=== PATIENT | female | born 1940 | race Caucasian/White ===

== ENCOUNTER 2016-08-10 08:32 | Inpatient (IN) | payer MEDICARE, BC ==
[2016-08-03 13:11] VITALS: BMI 32.2
[~2016-08-10 08:32] MED LIST: DEXAMETHASONE SOD PHOSPHATE 10 MG/ML 1 ML VIAL IV ONE; HYDROmorphone 1 MG/ML 1 ML SYRINGE IVP PRN; LACTATED RINGERS 1,000 ML IV SCH; LIDOCAINE 1% 20 ML VIAL (10MG/ML) FOR IV START INTRADERMA PRN; ONDANSETRON 4 MG/2 ML VIAL IVP ONE
[2016-08-10] MEDS ORDERED: MIDAZOLAM 2 MG/2 ML VIAL IV ONE (11:40)
[2016-08-10] MEDS ORDERED: LIDOCAINE 1% 20 ML VIAL (10MG/ML) FOR IV START INTRADERMA ONE (11:53)
[2016-08-10] MEDS ORDERED: VECURONIUM 10 MG VIAL IV ONE (12:05)
[2016-08-10] MEDS ORDERED: PROPOFOL 10 MG/ML 20 ML VIAL IV ONE (12:05)
[2016-08-10] MEDS ORDERED: PHENYLEPHRINE-0.9% NACL SYG 1 MG/10 ML SYRINGE ONE (12:05)
[2016-08-10] MEDS ORDERED: MIDAZOLAM 2 MG/2 ML VIAL ONE (12:05)
[2016-08-10] MEDS ORDERED: HYDROmorphone (PF) 1 MG/ML ONE (12:05)
[2016-08-10] MEDS ORDERED: GLYCOPYRROLATE 0.2 MG/ML 2 ML VIAL ONE (12:05)
[2016-08-10] MEDS ORDERED: ePHEDrine 50 MG/ML 1 ML AMP ONE (12:05)
[2016-08-10] MEDS ORDERED: ceFAZolin 1,000 MG in SODIUM CHLORIDE 0.9% 1,000 ML IRRIGATION ONE (12:05)
[2016-08-10] MEDS ORDERED: LIDOCAINE 1% INJ 10MG/ML (20 ML MDV) ONE (12:05)
[2016-08-10] MEDS ORDERED: SODIUM CHLORIDE 0.9% 100 ML with ceFAZolin 2,000 MG IV ONE ×2 (12:05)
[2016-08-10] MEDS ORDERED: SUCCINYLCHOLINE CHLORIDE 100 MG/5 ML SYR IV ONE (12:05)
[2016-08-10] MEDS ORDERED: NEOSTIGMINE 1 MG/ML 10 ML VIAL ONE (12:05)
[2016-08-10] MEDS ORDERED: fentaNYL (PF) 50 MCG/ML 2 ML AMP ONE (12:05)
[2016-08-10] MEDS ORDERED: LACTATED RINGERS 1,000 ML IV ONE ×3 (13:15→16:51)
--- NOTE | 2016-08-10 15:16 | FL ---
EXAMINATION TYPE: FL guidance operating room, XR foot complete LT DATE OF EXAM: 08/10/2016 CLINICAL HISTORY: Left foot fracture. TECHNIQUE: Fluoroscopy. Complete left foot x-ray. COMPARISON: None. FINDINGS: Fluoroscopic guidance was provided during open reduction internal fixation procedure perfo rmed by Dr. Carlos. A total of 112 seconds of fluoroscopic time was utilized during the procedure and four spot intraoperative images are acquired. Images acquired show extensive arthrodesis of midfoot and hindfoot structures including involvement a nd Lisfranc joints and hindfoot aspect. IMPRESSION: As Above.
[2016-08-10] MEDS ORDERED: HYDROmorphone 1 MG/ML 1 ML SYRINGE IVP PRN ×3 (15:45)
[2016-08-10] MEDS ORDERED: hydrOXYzine PAMOATE 25 MG CAP PO PRN (15:45)
[2016-08-10] MEDS ORDERED: PROCHLORPERAZINE SUPPOSITORY 25 MG SUPP RECTAL PRN (15:45)
[2016-08-10] MEDS ORDERED: diphenhydrAMINE 25 MG CAP PO PRN (15:45)
[2016-08-10] MEDS ORDERED: METOCLOPRAMIDE 5 MG/ML 2 ML VIAL IVP PRN (15:45)
[2016-08-10] MEDS ORDERED: ONDANSETRON 4 MG/2 ML VIAL IVP PRN (15:45)
[2016-08-10] MEDS ORDERED: TEMAZEPAM 15 MG CAP PO PRN (15:45)
[2016-08-10] MEDS ORDERED: SENNOSIDES-DOCUSATE SODIUM 1 EACH TAB PO PRN (15:45)
[2016-08-10] MEDS ORDERED: HYDROcodone/APAP 7.5-325MG 1 EACH TAB PO PRN (15:52)
--- NOTE | 2016-08-10 16:12 | P.OP ---
Date of Procedure: 08/10/16 Preoperative Diagnosis: 1. Left stage IIB adult acquired flatfoot deformity 2. Left posterior tibial tendon dysfunction 3. Left first tarsometatarsal joint arthritis 4. Left Achilles tendon contracture Postoperative Diagnosis: Same Procedure(s) Performed: 1. Left double arthrodesis (subtalar and talonavicular joints) 2. Left first tarsometatarsal joint fusion obtained through a separate incision 3. Left percutaneous tendo Achilles lengthening (triple hemisection) Implants: Anesthesia: GETA, regional Surgeon: Ang Carlos Ramp Lead #1: Anil Winn Estimated Blood Loss (ml): 200 IV fluids (ml): 1,700 Urine output (ml): 740 Pathology: none sent Condition: stable Disposition: PACU Indications for Procedure: The patient is a previously healthy 75 rolled female who has had a long- standing history of problems with her left foot. She's been managed by other providers. She has tried orthotics, bracing, shoe modification, activity modification, anti-inflammatories, and therapy all with diminishing relief. She was referred to my office for management. I discussed continued nonsurgical treatment versus surgery. The patient requested surgery due to the ongoing pain and deformity. Due to the patient's age, degree of deformity, and arthritic changes I recommended a double arthrodesis of the subtalar and talonavicular joints and a first tarsometatarsal joint fusion as well as lengthening of the Achilles tendon. The patient and her daughter agreed to go forward with surgery. We discussed potential risks and complication of surgery including but not limited to risks of anesthesia, risk of superficial infection , risk of deep infection, risk of delayed wound healing, risk of wound necrosis , risk of damage to local nerves resulting in temporary or permanent numbness, risk of damage to blood vessels resulting in lack of blood flow to the foot, risk of nonunion, risk of malunion, risk of delayed union, risk of intraoperative fracture, risk of postoperative fracture, risk of recurrent deformity, risk of continued pain, risk of continued swelling, risk of generalized to satisfaction with surgery, risk of need for further surgery, risk of postoperative medical problems, risk of weakness, risk of difficulty ambulating, risk of inability to regain preinjury level of function and possibly loss of life or limb. The patient and her family understand these risks and provided their verbal consent to go forward with surgery. Operative Findings: Description of Procedure: The patient was identified in preoperative holding and the correct left leg was marked with my initials. The patient had all of her questions answered before being brought back to the operating room. I verified that the consent form matched our discussed procedure in the office. Prior to going to the operating room anesthesia placed a popliteal nerve block. The patient was then brought back to operating room and a general anesthetic was administered. She was then positioned on the operating room table and all bony prominences were padded. A tourniquet was applied to the proximal aspect of her left thigh. All bony prominences were well-padded. While she was under anesthesia I performed a Silfverskiold test. With the knee extended and bent I was unable to passively dorsiflex past neutral. A bone foam bump was then placed under her left buttock. A ramp was placed under her left leg. The left leg was then prepped and draped in the standard sterile fashion. Prior to starting surgery timeout was performed identifying the correct patient, operative extremity, and procedure. The patient's leg was then elevated, exsanguinated with an Esmarch bandage, and the tourniquet was inflated to 250 mmHg. I began by performing a triple hemisection of the Achilles tendon. A 15 blade scalpel was inserted into the distal aspect of the Achilles tendon in the midline and the knife was turned medially releasing the medial half of the tendon. The knife was carefully withdrawn and advanced 2 cm and the lateral half of the Achilles was released. The knife was carefully withdrawn and advanced 2 cm and the medial half of the tendon was released. Gentle dorsiflexion force to the ankle was applied and there was a significant increase in the length of the Achilles tendon and dorsiflexion of the ankle. Attention was then turned to exposing the subtalar joint. A skin incision was marked out with a marker from the tip of the fibula extending obliquely towards the base of the fourth metatarsal. An incision was made with 15 blade scalpel and dissection was carried down carefully through subcutaneous tissue with tenotomy scissors. The fascia over the EDB muscle was incised longitudinally in line with the skin incision. I developed the interval between the peroneal tendons and the EDB. The subtalar joint was then exposed. The ligaments were released to allow adequate exposure of the middle and posterior facets. K wires were then placed into the talar body and calcaneus. A distractor was applied. The articular cartilage was removed from the posterior and middle facets of the calcaneus using a combination of osteotomes and curettes. All of the cartilage was removed. The joint was then irrigated. A 2.0 mm drill bit was used to freight the subchondral bone to facilitate fusion. Attention was then turned to exposing the talonavicular joint. A skin incision was marked out with a marker from the tip of the fibula along the medial column of the foot centered over the talonavicular joint. Skin incision was made a 15 blade scalpel and dissection was carried down carefully through subcutaneous tissue. The interval between the tibialis anterior and posterior tibial tendon was developed. The posterior tibial tendon appeared to be thickened and necrotic. A large portion of the posterior tibial tendon was sharply excised. The capsule of the talonavicular joint was then opened. K wires for distractor were placed in the talar neck and navicular. A distractor was then placed opening the talonavicular joint. The articular cartilage from the talar head and navicular removed with a series of osteotomes and curettes. The joint was then copiously irrigated. A 2.0 mm drill bit was used to perforate the talar head and navicular. At this point both of the joints were prepared for fusion. Augment was then dispensed and mixed on the back table. The augment mixture was then packed into the drill holes of the subtalar and talonavicular joint. I then carefully reduced the subtalar joint, placing the subtalar joint in slight valgus making sure the heel lined up with the tibia. A 0.0625 K wire was placed up through the anterior process of the calcaneus into the talus holding the reduction. C- arm was then brought in and 2 K wires for a cannulated 7.0 screws were placed from the base of the heel up into the talar body. I verified position of the wires with fluoroscopy in the lateral, axial, and AP ankle views. Once I was happy with position of the wires they were overdrilled, countersunk was used and partially threaded 7.0 mm cannulated screws were applied. Attention was then turned to the talonavicular joint. The talonavicular joint was reduced. The forefoot was brought around the talar head. Once the talar joint was reduced K wires were placed in the navicular tuberosity and over the dorsomedial aspect of the talus. A drill bit was used to overdrill the wires and partially threaded 4.0 mm screws were placed generating excellent compression across the talonavicular joint. Attention was then turned to the first tarsometatarsal joint. A longitudinal incision in the 1-2 intermetatarsal space was marked out. An incision was made a 15 blade scalpel and dissection was carried down carefully through subcutaneous tissue. The interval between the EHL and EHB was exploited. The first tarsometatarsal joint was then exposed. Dorsal osteophytes were removed with a Tony. The joint appeared markedly arthritic and deformed. Osteotomes were used to remove the remaining cartilage all the way down to the plantar aspect of the joint to prevent dorsiflexion of the fusion. Once all of the articular cartilage was removed the joint surface was perforated with a 20 drill bit. The remaining augment mixture was packed into the fusion site. The joint was then held reduced taking care to plantarflex the first ray. A 0.0625 K wire was placed obliquely across the joint. A 5 mm bur was used to create a pocket hole over the dorsal aspect of the first metatarsal 1.5 cm distal to the joint. A 3.5 mm drill bit was used to create a gliding hole in the base of the first metatarsal and a 2.5 mm drill bit was used to create a threaded hole in the medial cuneiform. A fully threaded 3.5 mm screw was placed across the joint generating excellent compression. A 2.5 mm drill bit was then used to place a screw in the dorsal aspect of the medial cuneiform into the first metatarsal base. A fully threaded 3.5 mm screw was placed across the joint. I then made a stab incision over the medial aspect of the first metatarsal underneath the screw head of the retrograde screw across the first tarsometatarsal joint. A 2.5 mm drill bit was used to create a track from the first metatarsal base across the second metatarsal base. A fully threaded 3.5 mm screw was placed across the first and second metatarsal. I then placed a K wire through the proximal aspect of the incision over the first tarsometatarsal joint through the lateral aspect of the navicular across the talonavicular joint. A drill was used to create a track and a partially-threaded 4.0 mm screw was placed across the joint. Final fluoroscopy shots were taken showing reconstruction of the arch on the lateral view. The talonavicular and subtalar joints appeared compressed. Hardware appeared to be in acceptable position. There were no screws within the ankle joint. Clinically the patient had a reconstructed arch. At this point all wounds were irrigated taking care not to wash away any augment. The joint capsule was closed with running 0 Vicryl over the medial talonavicular and lateral subtalar joint respectively. The deep subcu of all incisions were closed with 2-0 Vicryl. The capsule over the first tarsometatarsal joint was closed with interrupted 2-0 Vicryl. The deep subcu layers of all incisions were closed with 2-0 Vicryl. Skin was closed with 3-0 nylon horizontal mattress stitches. The stab incision over the heel was closed with 3-0 nylon. The stab incisions from the Achilles tendon lengthening were closed with Steri-Strips. I verified that all instrument sponge and sharp counts were correct. The tourniquet had been let down earlier in the procedure with a total tourniquet time of 116 minutes. At the end of the case the toes appeared to be warm and well-perfused brisk capillary refill. A sterile dressing consisting of Betadine soaked Adaptic, 4 x 4, and web roll was applied. The drapes were taken down and a well-padded bulky Anderson splint was applied. The patient was then awoken from her anesthetic transferred to the [facility] and brought back up out of the procedure well. And often was required as a skilled nursing home assistant for patient positioning, surgical exposure, preparation of the joint surfaces, placement of the hardware, closure , application of splint. Plan: The patient is going to be admitted to the hospital under my care. She is to remain strictly nonweightbearing on her left lower extremity. 2 doses of postoperative antibiotics. DVT prophylaxis with Lovenox while in-house and will discharge home on aspirin 325 mg twice a day. Physical therapy for mobilization. Transition from IV to oral pain medications. The patient can discharge home when her pain is controlled on oral pain medications, she passes physical therapy and discharge plans are made.
[2016-08-10 18:25] LABS: Basophils % (A) 0 %; CH 30.1; Eosinophils % (A) 0 %; HCT 39.9 % (34.0-46.0); HDW 2.75; HGB 13.2 gm/dL (11.4-16.0); Luc # (Auto) 0.02; Luc % (Auto) 0; Lymphocytes # (A) 0.6 k/uL (1.0-4.8); Lymphocytes % (A) 7 %; MCH 29.4 pg (25.0-35.0); MCHC 33.1 g/dL (31.0-37.0); Mean Platelet Volume 6.4; Monocytes # (A) 0.1 k/uL (0-1.0); Monocytes % (A) 1 %; Neutrophils # (A) 8.4 k/uL (1.3-7.7); Neutrophils % (A) 92 %; RBC 4.49 m/uL (3.80-5.40); RDW 13.4 % (11.5-15.5); WBC 9.2 k/uL (3.8-10.6); WBC (Perox) 10.29
[2016-08-10] MEDS: ceFAZolin 2 GM in SODIUM CHLORIDE 0.9% 100 ML IVPB SCH ×2 (18:30→23:08)
[2016-08-10] MEDS: CALCIUM CARBONATE 500 MG CHEWABLE PO SCH (21:23)
[2016-08-10] MEDS: LACTATED RINGERS 1,000 ML IV SCH (21:23)
[2016-08-10] MEDS: HYDROcodone/APAP 7.5-325MG 1 EACH TAB PO PRN (21:27)
[2016-08-11] MEDS: LACTATED RINGERS 1,000 ML IV SCH ×3 (04:18→22:04)
[2016-08-11] MEDS: HYDROcodone/APAP 7.5-325MG 1 EACH TAB PO PRN ×3 (04:20→17:22)
--- NOTE | 2016-08-11 08:50 | CONS ---
DATE OF CONSULTATION: REASON FOR CONSULTATION: Advice regarding hypertension requested by Dr. Carlos. HISTORY OF PRESENT ILLNESS: This 75-year-old woman with a past medical history of hypertension, hard of hearing, history of pneumonia, heart murmur, history of hysterectomy, history of nicotine dependence being followed by [facility] Dotson in the outpatient setting underwent left double arthrodesis of joints as well as left first tarsometatarsal joint effusion. Obtained three separate incisions and left percutaneous Achillis lengthening for adult flat foot deformity. There is no history of fever, rigors. No history of headache, loss of consciousness, seizures. No history of hematochezia, melena at this time. PAST MEDICAL HISTORY: Hearing defects, uses hearing aid, hypertension, history of pneumonia, heart murmur, hysterectomy, total right and left knee, left wrist. Medications prior to admission include home medications are: 1. Norvasc 5 mg p.o. daily. 2. Metoprolol 25 mg daily. 3. Lisinopril 40 mg daily. 4. Hydrochlorothiazide 12.5 mg daily. 5. Glucosamine 1 capsule p.o. at bedtime. 6. Fish oil 1 capsule daily. 7. Zyloprim 100 mg p.o. daily. ALLERGIES: None. FAMILY HISTORY: No history of heart disease or strokes in the family. SOCIAL HISTORY: Previous history of smoking, no history of alcohol intake. REVIEW OF SYSTEMS: ENT: No diminished hearing. No diminished vision. CARDIOVASCULAR: No angina. RESPIRATORY: No cough or hemoptysis. GI: No nausea. : No dysuria. NERVOUS SYSTEM: No numbness or weakness. ALLERGY/IMMUNOLOGY: No asthma or hayfever. MUSCULOSKELETAL: As mentioned earlier. HEMATOLOGY: No history of anemia. ENDOCRINE: No history of diabetes or hypothyroidism. CONSTITUTIONAL: As mentioned earlier. DERMATOLOGY: Negative. RHEUMATOLOGY: As mentioned earlier. PSYCHIATRY: As mentioned earlier. PHYSICAL EXAMINATION: Patient is alert and oriented x3. Pulse is 82, blood pressure 113/56, respirations 16, temperature normal, pulse ox 93% on room air. HEENT: Conjunctivae normal. NECK: No jugular venous distention. CARDIOVASCULAR: S1 and S2, muffled. Ejection systolic murmur. RESPIRATORY: Breath sounds diminished at the bases. No rhonchi, no crackles. ABDOMEN: Soft, nontender. No mass palpable. LEGS: Status post surgery. NERVOUS SYSTEM: Higher function as mentioned. Moves all four limbs. No focal motor deficits. LYMPHATIC: No lymphadenopathy in the neck, axillae or groin. SKIN: No ulcer, rash or bleeding. LABS: CBC within normal limits. ASSESSMENT: 1. Status post left double arthrodesis subtalar and talonavicular joints as well as first tarsometatarsal fusion and percutaneous Achilles lengthening for left stage B adult acquired flat foot and Achilles tendon contractures. 2. Hypertension. 3. History pneumonia. 4. History of hard of hearing. 5. History heart murmur. 6. History of nicotine dependence. 7. FULL CODE. RECOMMENDATIONS AND DISCUSSION: This 75-year-old woman who presented after surgery, at this time I recommend to continue current medications, continue with symptomatic treatment, resume the home medications. Monitor blood pressure. DVT prophylaxis. Incentive spirometry. Follow the patient closely with you. Thank you Dr. Carlos for letting us participate in the care of this patient. See orders for details. BRIDGETD
[2016-08-11] MEDS: METOPROLOL TARTRATE 25 MG TAB PO SCH (08:56)
[2016-08-11] MEDS: CALCIUM CARBONATE 500 MG CHEWABLE PO SCH ×3 (08:56→17:23)
[2016-08-11] MEDS: ENOXAPARIN 40 MG/0.4 ML SYRINGE SQ SCH (08:56)
[2016-08-11] MEDS: amLODIPine 5 MG TAB PO SCH (08:56)
[2016-08-11] MEDS: HYDROCHLOROTHIAZIDE 12.5 MG CAP PO SCH (08:56)
[2016-08-11] MEDS: ALLOPURINOL 100 MG TAB PO SCH (08:56)
[2016-08-11] MEDS: LISINOPRIL 20 MG TAB PO SCH (08:56)
--- NOTE | 2016-08-11 10:14 | P.PN ---
Subjective The patient is doing well this morning and has minimal discomfort in her left ankle or foot. She denies chest pain or shortness of breath. She is up in a chair at the time of my evaluation. Objective - Vital Signs Vital signs: Vital Signs Temp 98.0 F 08/11/16 07:00 Pulse 80 08/11/16 07:00 Resp 16 08/11/16 07:00 BP 154/65 08/11/16 07:00 Pulse Ox 92 L 08/11/16 07:00 Intake & Output 08/10/16 08/11/16 08/11/16 18:59 06:59 18:59 Intake Total 2301 1200 480 Output Total 990 Balance 1311 1200 480 Weight 96.162 kg Intake: IV 2301 1200 Lactated Ringers 1,000 ml 1200 @ 100 mls/hr IV .Q10H CASI Rx#:[id number] Oral 480 Output: Urine 790 Estimated Blood Loss 200 Other: Voiding Method Bedpan Bedside Commode # Voids 1 - Exam On exam the patient is in no apparent distress and is sitting comfortably at the bedside in a chair. On examination of the left leg there is a clean- appearing bulky Anderson splint. The tips of the toes are visible and are warm and well perfused with brisk capillary refill. She has no pain with passive range of motion of her toes. - Labs CBC & Chem 7: 08/10/16 17:43 Labs: Abnormal Lab Results - Last 24 Hours (Table) 08/10/16 Range/Units 17:43 Neutrophils # 8.4 H (1.3-7.7) k/uL Lymphocytes # 0.6 L (1.0-4.8) k/uL Assessment and Plan Plan: Postop day #1 status post double arthrodesis for correction of adult acquired flat foot deformity, first tarsometatarsal fusion, and percutaneous tendo Achilles lengthening. Doing well 1. Strict nonweightbearing left lower extremity. Ice and elevate the limb. 2. 2 doses postoperative antibiotics. 3. DVT prophylaxis with Lovenox while in home and aspirin 325 mg twice daily after discharge 4. Internal medicine consult for assistance with perioperative medical management 5. Physical therapy for gait training 6. Bone health with calcium carbonate 500 mg 3 times a day, vitamin D3 2000 units daily and 25-hydroxy vitamin D level pending. 7. Discharge planning - we'll await assessment by physical therapy and social work regarding discharge plans. The patient may need a short stay in a rehab facility. When she clears physical therapy and her pain is controlled with oral pain medications she is okay to discharge.
[2016-08-11] MEDS: CHOLECALCIFEROL 1,000 UNIT TAB PO SCH (11:17)
--- NOTE | 2016-08-11 21:40 | PN ---
DATE OF SERVICE: 08/11/2016 This 75 -year-old woman was admitted after left foot surgery is improving significantly. No chest pain. No palpitations. No fever. No chills. No shortness of breath. On exam, alert and oriented times three. Pulse 69, blood pressure 133/74. Respiratory rate 18. Temperature 97.9. Pulse ox 92% on room air. HEENT: Conjunctivae normal. NECK: No jugular venous distention. CARDIOVASCULAR: S1, S2 muffled. RESPIRATORY: Breath sounds diminished at the bases. No rhonchi. No crackles. ABDOMEN: Soft. Nontender. CENTRAL NERVOUS SYSTEM: No focal deficits. Examination of the left leg status post surgery. LABS: WBC CBC within normal limits. ASSESSMENT: 1. Status post left double arthrodesis of subtalar and navicular joints as well as on the left as well as first tarsal metatarsal fusion and percutaneous lengthening for left stage III adult acquired flatfoot as well as Achilles tendon contractures. 2. Hypertension, essential history. 3. History of pneumonia. 4. History of hard of hearing. 5. History of heart murmur. 6. History of nicotine dependence. 7. FULL CODE. RECOMMENDATIONS AND DISCUSSION: I recommend to continue current medications. Continue to monitor. Symptomatic treatment. Otherwise, at this time, I recommend current medications, continue DVT prophylaxis. Incentive spirometry. Closely follow with orthopedic surgery. Further recommendations to follow. MTDD
[2016-08-12] MEDS: HYDROcodone/APAP 7.5-325MG 1 EACH TAB PO PRN ×4 (00:43→20:18)
[2016-08-12] MEDS: CALCIUM CARBONATE 500 MG CHEWABLE PO SCH ×3 (08:30→17:36)
[2016-08-12] MEDS: LACTATED RINGERS 1,000 ML IV SCH ×2 (08:31→22:07)
[2016-08-12] MEDS: METOPROLOL TARTRATE 25 MG TAB PO SCH (08:38)
[2016-08-12] MEDS: HYDROCHLOROTHIAZIDE 12.5 MG CAP PO SCH (08:38)
[2016-08-12] MEDS: ALLOPURINOL 100 MG TAB PO SCH (08:38)
[2016-08-12] MEDS: amLODIPine 5 MG TAB PO SCH (08:38)
[2016-08-12] MEDS: LISINOPRIL 20 MG TAB PO SCH (08:38)
[2016-08-12] MEDS: ENOXAPARIN 40 MG/0.4 ML SYRINGE SQ SCH (08:39)
[2016-08-12] MEDS: CHOLECALCIFEROL 1,000 UNIT TAB PO SCH (12:05)
--- NOTE | 2016-08-12 13:10 | P.PN ---
Subjective Principal diagnosis: Left adult acquired flat foot deformity This is a well-appearing 75-year-old female who is postoperative day #2 from surgery to the left foot. Patient states she is doing very well. Patient states her pain is under control. Patient states she has been up and working with physical therapy. Patient states she has remained nonweightbearing to the left lower extremity as recommended. Patient has no new complaints today. Objective - Vital Signs Vital signs: Vital Signs Temp 97.7 F 08/12/16 07:00 Pulse 72 08/12/16 07:00 Resp 16 08/12/16 07:00 BP 150/74 08/12/16 07:00 Pulse Ox 91 L 08/12/16 07:00 Intake & Output 08/11/16 08/12/16 08/12/16 18:59 06:59 18:59 Intake Total 1320 300 180 Output Total 100 Balance 1320 300 80 Intake: Oral 1320 300 180 Output: Urine 100 Other: Voiding Method Bedside Commode Bedside Commode Bedside Commode # Voids 1 1 - Exam Patient is in no acute distress and patient is alert and oriented 3. On exam of the left lower extremity patient's splint is clean, dry and intact. Sensation is intact with light touch to the left toes. Neurovascular status is intact. - Labs CBC & Chem 7: 08/10/16 17:43 Assessment and Plan Plan: #1. Continue routine postoperative care. #2. Continue nonweightbearing to the left lower extremity. #3. Continue anticoagulation and pain control #3. Patient will most likely discharge to rehab tomorrow.
[2016-08-13] MEDS: HYDROcodone/APAP 7.5-325MG 1 EACH TAB PO PRN ×3 (02:43→14:44)
[2016-08-13 04:40] VITALS: RESP 16
[2016-08-13] MEDS: LACTATED RINGERS 1,000 ML IV SCH (04:47)
--- NOTE | 2016-08-13 07:24 | PN ---
DATE OF SERVICE: 08/12/2016 This 75-year-old woman who was admitted with left foot surgery is being closely monitoring. The patient is improving significantly. No chest pain or palpitation. No fever. On examination, the patient is alert and oriented x3. Pulse is 71, blood pressure 114/66, respirations 16, temperature 97.7, pulse ox is 92% on room air. HEENT: Conjunctivae normal. NECK: No jugular venous distention. CARDIOVASCULAR: S1 and S2, muffled. RESPIRATORY: Breath sounds diminished at the bases. No rhonchi, no crackles. ABDOMEN: Soft, nontender. LEGS: Status post left foot surgery. NERVOUS SYSTEM: No focal deficit. Labs are noted. ASSESSMENT: 1. Status post left double arthrodesis subtalar and navicular joints as well as left tarsometatarsal fusion with percutaneous lengthening of Achilles tendon for stage III adult acquire flatfoot as well as Achilles tendon contractures. 2. Hypertension, essential, history. 3. History of pneumonia. 4. Hard of hearing. 5. History of cardiac murmurs. 6. History of nicotine dependence. 7. FULL CODE. RECOMMENDATIONS AND DISCUSSION: Recommend to continue current medications. Continue symptomatic treatment. DVT prophylaxis. Recommend close outpatient followup. Further recommendations to follow. MTDD
[2016-08-13 08:37] VITALS: BP 153/77; PULSE 71; TEMP 98.2
[2016-08-13] MEDS: ALLOPURINOL 100 MG TAB PO SCH (09:16)
[2016-08-13] MEDS: METOPROLOL TARTRATE 25 MG TAB PO SCH (09:16)
[2016-08-13] MEDS: LISINOPRIL 20 MG TAB PO SCH (09:16)
[2016-08-13] MEDS: HYDROCHLOROTHIAZIDE 12.5 MG CAP PO SCH (09:16)
[2016-08-13] MEDS: amLODIPine 5 MG TAB PO SCH (09:16)
[2016-08-13] MEDS: ENOXAPARIN 40 MG/0.4 ML SYRINGE SQ SCH (09:16)
[2016-08-13] MEDS: CALCIUM CARBONATE 500 MG CHEWABLE PO SCH ×2 (09:16→14:45)
--- NOTE | 2016-08-13 10:01 | P.DS ---
Providers Date of admission: 08/10/16 11:00 Expected date of discharge: 08/13/16 Attending physician: Ang Carlos Consults: 08/10/16 16:36 Consult Physician Routine Consulting Provider: Carlos Foss Consult Reason/Comments: post op medical management Do you want consulting provider notified?: Yes Primary care physician: Stated None - Discharge Diagnosis(es) (1) Flatfoot Patient was admitted the OR on 08/10/2016 to undergo a left foot arthrodesis, TMT joint fusion and Achilles tendon lengthening. She had failed conservative measures as an outpatient and desired to proceed with surgical intervention after given informed consent including possible risks, complications and benefits. She underwent the above procedure which she tolerated well without complication. Her postoperative hospital course has remained without complication. On day of discharge she is afebrile, vital signs stable, labs were acceptable ranges, surgical wound is benign, splint in place, bandages benign, neurovascular status intact, abdomen soft nontender, denying new complaints, tolerating by mouth meds and diet, voiding without difficulty, passing flatus. Review of systems is negative for calf pain, numbness, tingling , fever, chills, chest pain, shortness breath, nausea, vomiting, dizziness, headaches, rashes, bleeding, slurred speech or other. Current Visit: Yes Status: Acute Priority: Medium (2) Arthritis of foot, degenerative Current Visit: Yes Status: Acute Priority: Medium Procedures: 1. Left double arthrodesis (subtalar and talonavicular joints) 2. Left first tarsometatarsal joint fusion obtained through a separate incision 3. Left percutaneous tendo Achilles lengthening (triple hemisection Patient Condition at Discharge: Good Plan - Discharge Summary New Discharge Prescriptions: No Action Glucosamine/Chondroitin/C/Satish [Glucosamine-Chondroitin Capsul] 1 cap PO HS Allopurinol [Zyloprim] 100 mg PO DAILY Metoprolol Tartrate 25 mg PO DAILY Hydrochlorothiazide 12.5 mg PO DAILY Lisinopril 40 mg PO DAILY amLODIPine [Norvasc] 5 mg PO DAILY Fish Oil/Dha/Epa [Fish Oil 1,200 mg Fish Oil] 1 cap PO DAILY Discharge Medication List Allopurinol [Zyloprim] 100 mg PO DAILY 08/03/16 [History] Fish Oil/Dha/Epa [Fish Oil 1,200 mg Fish Oil] 1 cap PO DAILY 08/03/16 [History] Glucosamine/Chondroitin/C/Satish [Glucosamine-Chondroitin Capsul] 1 cap PO HS [History] Hydrochlorothiazide 12.5 mg PO DAILY 08/03/16 [History] Lisinopril 40 mg PO DAILY 08/03/16 [History] Metoprolol Tartrate 25 mg PO DAILY 08/03/16 [History] amLODIPine [Norvasc] 5 mg PO DAILY 08/03/16 [History]
--- NOTE | 2016-08-13 10:21 | XR ---
EXAMINATION TYPE: XR chest 2V DATE OF EXAM: 08/13/2016 COMPARISON: NONE HISTORY: Extended-care facility placement TECHNIQUE: Frontal and lateral views of the chest are obtained. FINDINGS: Nodular densities noted on the lateral exam superimposed over the descending aorta proxima lly. This could possibly represent superimposition of structures however mass is not excluded. No ingrid dent pneumonia, pneumothorax, or pleural effusion. Heart size is within normal. Patient is rotated. IMPRESSION: Cannot exclude a mass in the region of the superior segment of the left lower lobe. Cons ider chest CT for better evaluation.
--- NOTE | 2016-08-13 12:50 | PN ---
DATE OF SERVICE: 08/13/2016 This 75-year-old woman was admitted after left foot surgery, has improved significantly. No chest pain, no palpitation. No fever. On exam, alert and oriented x3. Pulse is 69, blood pressure 140/70, respirations 17, temperature 98.4, pulse ox 94% on room air. HEENT: Conjunctivae normal. NECK: No jugular venous distension. CARDIOVACULAR SYSTEM: S1, S2, muffled. RESPIRATORY: Breath sounds diminished at the bases, no rhonchi, no crackles. ABDOMEN: Soft. LEGS: Status post left-sided numbness. NERVOUS SYSTEM: No focal deficits. Labs are noted. ASSESSMENT: 1. Status post left double arthrodesis subtalar and navicular joint as well as left tarsometatarsal fusion with cutaneous tightening of the Achilles tendon for stage III acquired flat foot as well as acute tendon contracture. 2. Hypertension, essential history. 3. History of pneumonia. 4. History of hard of hearing. 5. History of cardiac murmur. 6. History of nicotine dependence. 7. FULL CODE. RECOMMENDATION: Recommend to continue with the current medications. Continue with the monitoring and symptomatic treatment. Otherwise, at this time I would recommend continue with DVT prophylaxis and the rest of the medications per Orthopedic Surgery. Further recommendations to follow. MTDD
[2016-08-13] MEDS: CHOLECALCIFEROL 1,000 UNIT TAB PO SCH (14:45)
== END 2016-08-13 15:17 | DRG 505 ==
LOC: 2ORMAIN 11:00 → 3SUR 15:39
PROVIDERS: ADMIT Orthopaedic Surgery; ATTEND Orthopaedic Surgery
PROC: 0SGL04Z Fusion of Left Tarsometatarsal Joint with Internal Fixation Device, Open Approach (ICD-10-PCS; 2016-08-10)
PROC: 0SGJ04Z Fusion of Left Tarsal Joint with Internal Fixation Device, Open Approach (ICD-10-PCS; 2016-08-10)
PROC: 0SGJ04Z Fusion of Left Tarsal Joint with Internal Fixation Device, Open Approach (ICD-10-PCS; 2016-08-10)
PROC: 0L8P3ZZ Division of Left Lower Leg Tendon, Percutaneous Approach (ICD-10-PCS; principal; 2016-08-10 12:30)
DX: M21.42 Flat foot [pes planus] (acquired), left foot (principal); I10 Essential (primary) hypertension; M19.079 Primary osteoarthritis, unspecified ankle and foot; M76.822 Posterior tibial tendinitis, left leg; M25.372 Other instability, left ankle; M67.02 Short Achilles tendon (acquired), left ankle; H91.90 Unspecified hearing loss, unspecified ear; Z90.710 Acquired absence of both cervix and uterus; Z87.01 Personal history of pneumonia (recurrent); Z87.891 Personal history of nicotine dependence; Z79.899 Other long term (current) drug therapy
CPT/HCPCS: 71020; 82306; 85025

== ENCOUNTER → 2019-08-20 | Outpatient (CLI) | payer MEDICARE, BC ==
[2019-08-20 13:11] VITALS: BP 164/74; PULSE 67; RESP 18; TEMP 98.1
--- NOTE | 2019-08-20 13:41 | P.GSHP ---
History of Present Illness H&P Date: 08/20/19 Chief Complaint: abnormal right breast mammogram and ultrasound Norman is a 78-year-old white female who presents for breast evaluation and consultation for Lily Tolliver. [place] [address]. This revealed breast tissue with scattered fibroglandular densities. Ultrasound of the right breast was recommended, nothing further of the left breast was recommended at this time. Ultrasound was performed on 2519. This revealed a 0.5 x 0.5 cm well-circumscribed hypoechoic region just superior to the nipple in the retroareolar region. This was felt to be probable complex cyst and was BIRADS 3. Six-month follow-up with a right-sided mammogram and ultrasound was recommended. This was a routine mammogram. The patient does not feel any lumps masses or nodules in her breast. Her appointment was postponed secondary to the rivas virus pandemic. The patient has no history of any trauma to the breast. No complaints of any recent infection in the breast. No surgeries in that breast, she did have 2 prior open left breast biopsies which were not cancer. No nipple discharge or skin changes. Caffiene: Coffee per day Nicotine: Negative Theophylline: Occasional Family History: mother: colon cancer, liver mets Hormonal History: menarche: 11 , 1 , breast fed: yes, first born at 24 menopause: hysterectomy at 35, left one ovary, no cancer/fibroids BCP: < 1 year hormones: none Surgical history: 1. Hysterectomy and one ovary removed at the age of 35 2. 2 3. Bilateral knee replacement done twice on the right 4. Left foot surgery reconstruction 5. bilateral wrist surgery Medical History: 1. arthritis 2. HTN 3. gout 4. heart murmur Social History: smoke: none, stopped 40 years ago, smoked 20 years alcohol: none drugs: none - Constitutional Constitutional: Denies chills, Denies fever - EENT Comment: right eye decreased vision Ears: bilateral: decreased hearing Ears, nose, mouth and throat: Denies headache, Denies sore throat - Breasts Breasts: bilateral: as per HPI - Cardiovascular Cardiovascular: Reports high blood pressure - Respiratory Respiratory: Denies cough, Denies 7 - Gastrointestinal Gastrointestinal: Denies abdominal pain, Denies diarrhea, Denies nausea, Denies vomiting - Genitourinary (Female) Genitourinary: Denies dysuria, Denies hematuria - Menstruation Menstruation: Reports postmenopausal - Musculoskeletal Comment: arthritis - Integumentary Integumentary: Denies pruritus, Denies rash - Neurological Neurological: Denies numbness, Denies weakness - Psychiatric Psychiatric: Denies anxiety, Denies depression - Endocrine Endocrine: Denies fatigue - Hematologic/Lymphatic Comment: none - Allergic/Immunologic Allergic/Immunologic: Reports as per HPI Past Medical History Past Medical History: Hearing Disorder / Deafness, Hypertension, Pneumonia Additional Past Medical History / Comment(s): HEART MURMUR History of Any Multi-Drug Resistant Organisms: None Reported Past Surgical History: Hysterectomy Additional Past Surgical History / Comment(s): TOTAL RIGHT AND LEFT KNEE , LEFT WRIST Past Anesthesia/Blood Transfusion Reactions: No Reported Reaction Smoking Status: Former smoker - Past Family History Mother Family Medical History: No Reported History Medications and Allergies Home Medications Medication Instructions Recorded Confirmed Type Allopurinol [Zyloprim] 100 mg PO QAM 08/03/16 08/20/19 History Glucosamine/Chondroitin/C/Satish 1 cap PO HS 08/03/16 08/20/19 History [Glucosamine-Chondroitin Capsul] Lisinopril 40 mg PO QAM 08/03/16 08/20/19 History Metoprolol Tartrate 25 mg PO QAM 08/03/16 08/20/19 History amLODIPine [Norvasc] 5 mg PO QAM 08/03/16 08/20/19 History [place]-3 Fatty Acids/Fish Oil 1 each PO QAM 08/20/19 08/20/19 History [[place]-3 Fish Oil 1,200 mg Sfgl] Vitamin B Complex 1 each PO QAM 08/20/19 08/20/19 History Allergies Allergy/AdvReac Type Severity Reaction Status Date / Time No Known Allergies Allergy Verified 08/20/19 12:57 Surgical - Exam BMI 30 - General well developed, well nourished, no distress - Eyes normal ocular movement - ENT no hearing loss, no congestion - Neck no masses, trachea midline - Respiratory normal respiratory effort, clear to auscultation - Cardiovascular Rhythm: regular Heart Sounds: normal: S1, S2 - Abdomen Abdomen: soft, non tender, no guarding, no rigid, no rebound - Integumentary normal turgor - Neurologic no disoriented, no combative - Musculoskeletal normal gait, normal posture - Psychiatric oriented to time, oriented to person, oriented to place, speech is normal, memory intact breast exam: BRA 44D inspection: ptosis grade 3 bilateral palpation: right: Multi-positional exam fibrocystic changes, no dominant masses or nodules of concern Right axilla: No adenopathy of concern Left breast: Well-healed scar from prior biopsy, this is in the upper inner area, fibrocystic changes, no dominant masses or nodules of concern Left axilla: No adenopathy of concern Results Ultrasound of the right breast reviewed with radiologist, mammographic films were not present Mammogram and ultrasound reports reviewed Assessment and Plan Assessment: Impression: 1. arthritis 2. HTN 3. gout 4. heart murmur 5. Abnormal mammogram and ultrasound right breast 6. Family history of cancer 7. Fibrocystic breast changes 8. Status post left breast biopsy/benign in remote past Plan: 1. Repeat right breast mammogram and ultrasound at 6 months from prior 2. Follow-up. After repeat mammogram and ultrasound CC: Lily Tolliver encounter 45 minutes, > 50% of time in planning and counselling Time with Patient: Greater than 30
== END | disposition home or self-care (01) ==
LOC: WWCWWP 12:34
PROVIDERS: ATTEND Surgery
DX: Z53.9 Procedure and treatment not carried out, unspecified reason (principal)

== ENCOUNTER → 2019-10-12 | Outpatient (CLI) | payer MEDICARE, BC ==
--- NOTE | 2019-10-12 13:15 | MM ---
Reason for exam: follow-up at short interval from prior study. Last mammogram was performed 7 months ago. Physical Findings: Nurse did not find any significant physical abnormalities on exam. MG Diagnostic Mammo RT w CAD CC and MLO view(s) were taken of the right breast. Prior study comparison: March 05, 2019, mammogram, performed at [place]. There are scattered fibroglandular densities. There is chronic nodularity in the right breast. These results were verbally communicated with the patient and result sheet given to the patient on 10/12/19. ASSESSMENT: Incomplete: need additional imaging evaluation, BI-RAD 0 RECOMMENDATION: Ultrasound of the right breast.
--- NOTE | 2019-10-12 13:17 | USB ---
Reason for exam: follow-up at short interval from prior study. US Breast RT Right complete breast ultrasound includes all four quadrants, the retroareolar region and axilla. Finding demonstrates a 5 x 3 x 5mm oval, mixed lesion at the retroareola, stable for 6 months, probable complicated cyst and a 5 x 2 x 4mm oval, cystic lesion at the retroareola just adjacent, benign. Short interval follow up mammogram recommended at time of annual. These results were verbally communicated with the patient and result sheet given to the patient on 10/12/19. ASSESSMENT: Probably benign, BI-RAD 3 RECOMMENDATION: Follow-up diagnostic mammogram of both breasts in 6 months.
== END | disposition home or self-care (01) ==
LOC: RADMAMWWP 09:59
PROVIDERS: ATTEND Surgery
DX: R92.8 Other abnormal and inconclusive findings on diagnostic imaging of breast (principal)
CPT/HCPCS: 77065

== ENCOUNTER → 2019-10-22 | Outpatient (CLI) | payer MEDICARE, BC ==
[2019-10-22 16:28] VITALS: BP 156/51; PULSE 73; RESP 20; TEMP 98
--- NOTE | 2019-10-22 16:31 | P.PN ---
Subjective Progress Note Date: 10/22/19 Principal diagnosis: follow up right breast mammogram and ultrasound Norman is a 78-year-old white female who presented for breast evaluation and consultation for Dr. Quiros, and Lily Dotson. She had a bilateral mammogram performed on . This revealed breast tissue with scattered fibroglandular densities. Ultrasound of the right breast was recommended, nothing further of the left breast was recommended at this time. Ultrasound was performed on 2519. This revealed a 0.5 x 0.5 cm well-circumscribed hypoechoic region just superior to the nipple in the retroareolar region. This was felt to be probable complex cyst and was BIRADS 3. Six-month follow-up with a right-sided mammogram and ultrasound was recommended. This was a routine mammogram. The patient today does not feel any lumps masses or nodules in her breast. The patient has no history of any trauma to the breast. No complaints of any recent infection in the breast. No surgeries in that breast, she did have 2 prior open left breast biopsies which were not cancer. No nipple discharge or skin changes. She presents today for results of her right breast mammogram and ultrasound done on 10-12-19. These were BIRAD 3, and repeat studies in 6 months recommended. Caffiene: Coffee per day Nicotine: Negative Theophylline: Occasional Family History: mother: colon cancer, liver mets Hormonal History: menarche: 11 , 1 , breast fed: yes, first born at 24 menopause: hysterectomy at 35, left one ovary, no cancer/fibroids BCP: < 1 year hormones: none Surgical history: 1. Hysterectomy and one ovary removed at the age of 35 2. 2 3. Bilateral knee replacement done twice on the right 4. Left foot surgery reconstruction 5. bilateral wrist surgery Medical History: 1. arthritis 2. HTN 3. gout 4. heart murmur Social History: smoke: none, stopped 40 years ago, smoked 20 years alcohol: none drugs: none - Constitutional Constitutional: Denies chills, Denies fever - EENT Comment: right eye decreased vision Ears: bilateral: decreased hearing Ears, nose, mouth and throat: Denies headache, Denies sore throat - Breasts Breasts: bilateral: as per HPI - Cardiovascular Cardiovascular: Reports high blood pressure - Respiratory Respiratory: Denies cough, - Gastrointestinal Gastrointestinal: Denies abdominal pain, Denies diarrhea, Denies nausea, Denies vomiting - Genitourinary (Female) Genitourinary: Denies dysuria, Denies hematuria - Menstruation Menstruation: Reports postmenopausal - Musculoskeletal Comment: arthritis - Integumentary Integumentary: Denies pruritus, Denies rash - Neurological Neurological: Denies numbness, Denies weakness - Psychiatric Psychiatric: Denies anxiety, Denies depression - Endocrine Endocrine: Denies fatigue - Hematologic/Lymphatic Comment: none - Allergic/Immunologic Allergic/Immunologic: Reports as per HPI Examination of the breast was done on , the patient states she has not had any changes in her breast since that time and repeat examination is not performed. Mammogram and ultrasound performed on 820 420 probable benign BIRADS 3. I've discussed this with the patient. She understands and will have repeat bilateral mammogram and right breast ultrasound in March 2020. She will follow-up at that time. If she has any questions or concerns she will follow up sooner. CC: Lily Dotson encounter 10 minutes, > 50% of time in planning and counselling
== END | disposition home or self-care (01) ==
LOC: WWCWWP 15:22
PROVIDERS: ATTEND Surgery
DX: Z53.9 Procedure and treatment not carried out, unspecified reason (principal)

== ENCOUNTER 2020-03-11 07:46 | Day surgery (SDC) | payer MEDICARE, BC ==
[2020-03-08 14:33] VITALS: BMI 30.4
[2020-03-11] MEDS ORDERED: DEXAMETHASONE SOD PHOSPHATE 4 MG/ML 1 ML VIAL IV ONE (08:04)
[2020-03-11] MEDS ORDERED: HYDROmorphone 0.5 MG/0.5 ML SYRINGE IVP PRN (08:04)
[2020-03-11] MEDS ORDERED: LACTATED RINGERS 1,000 ML IV SCH (08:04)
[2020-03-11] MEDS ORDERED: MIDAZOLAM 2 MG/2 ML VIAL IV PRN (08:04)
[2020-03-11] MEDS ORDERED: LIDOCAINE 1% (10MG/ML) FOR IV START INTRADERMA PRN (08:04)
[2020-03-11] MEDS ORDERED: ONDANSETRON 4 MG/2 ML VIAL IVP ONE (08:04)
[2020-03-11] MEDS ORDERED: PROPOFOL 10 MG/ML 20 ML VIAL IV ONE (09:37)
[2020-03-11] MEDS ORDERED: ePHEDrine SULFATE/0.9% NACL/PF 50 MG/5 ML SYRINGE IV ONE (09:37)
[2020-03-11] MEDS ORDERED: fentaNYL (PF) 50 MCG/ML 2 ML AMP ONE (09:37)
[2020-03-11] MEDS ORDERED: WATER FOR INJECTION, STERILE 10 ML VIAL IV ONE (09:37)
[2020-03-11] MEDS ORDERED: LIDOCAINE 1% INJ 10MG/ML (20 ML MDV) ONE (09:37)
[2020-03-11] MEDS ORDERED: BUPIVACAINE (PF) 0.25% 30 ML VIAL SQ ONE (10:01)
[2020-03-11 11:05] VITALS: RESP 16; TEMP 99.3
--- NOTE | 2020-03-11 11:25 | FL ---
Fluoroscopy HISTORY: Pain 15 seconds fluoroscopy time supplied to the referring clinician. 1 intraoperative C-arm images docum ent the procedure. See dictated report from surgery.
--- NOTE | 2020-03-11 11:26 | XR ---
Left toes HISTORY: Intraoperative Single intraoperative image documents the procedure
[2020-03-11 12:04] VITALS: BP 151/72; PULSE 75
--- NOTE | 2020-03-17 20:52 | OP ---
OPERATIVE REPORT DATE OF: 03/11/2020 PREOPERATIVE DIAGNOSES: 1. Hallux malleus, left foot. 2. Hammertoes, 2 through 4, left foot. POSTOPERATIVE DIAGNOSES: 1. Hallux malleus, left foot. 2. Hammertoes, 2 through 4, left foot. PROCEDURE: 1. Interphalangeal joint fusion, left great toe. 2. Hammertoe correction, second and third digits, left foot. 3. Flexor tenotomy, fourth and fifth digits, left foot. SURGEON: Howard Zepeda DPM ANESTHESIA: General hemostasis left ankle tourniquet at 250 mmHg. ESTIMATED BLOOD LOSS: Minimal. MATERIALS: One Arthrex fully threaded 4.0 headless cannulated screw, Arthrex hammertoe implants x2. INJECTABLES: 20 mL 0.25% Marcaine preoperatively. SPECIMENS: None. COMPLICATIONS: None. OPERATIVE PROCEDURE: The patient was brought into the operating room and placed on the table in supine position. Timeout was taken to confirm correct patient identifiers, correct site of surgery and correct procedure. When the room was in agreement, the patient was placed under general anesthetic and then 20 mL of 0.25% Marcaine was injected as a left ankle block. A well-padded tourniquet was placed on the left ankle and then the left leg was prepped and draped in the usual manner. The leg was exsanguinated and the tourniquet inflated to 250 mmHg. Attention was first directed over the interphalangeal joint of the great toe. A transverse incision was made over the joint. It was deepened down to the subcutaneous tissue, careful to identify, avoid and retract all neurovascular structures and cauterize any bleeding vessels. The capsular and tendinous structures were sharply incised, exposing the articular surfaces of the joint. A sagittal saw was used to resect the articular surface of the proximal phalangeal head done perpendicular to the long axis. Rongeur was used to remove the cartilaginous surfaces of the base of the distal phalanx. The surfaces were fenestrated to promote bleeding. The area was reduced and checked under fluoroscopy for alignment. When alignment was confirmed, a guidewire was used to create a airplane pilot chief hole in the proximal phalanx and then it was removed and inserted at the base of the distal phalanx and advanced up the distal aspect of the great toe. It was then realigned with the airplane pilot chief hole in the proximal phalanx and advanced to the base. Fluoroscopic imaging confirmed proper position of the guidewire with maintaining correction of the arthrodesis site. A small stab incision was made through the skin where the pin exited the distal aspect of the great toe. Overdrill was performed and countersink and then a fully-threaded headless 4.0 screw was inserted across the guidewire and advanced until the threads contacted the distal phalanx and provided compression across the arthrodesis site. Visually there was good bony contact with no significant gapping, and fluoroscopy confirmed the proper positioning of the hardware and maintained correction of the arthrodesis site. The guidewire was then removed. Attention was then directed to the second and third digits. Linear incision was made over the proximal interphalangeal joints. They were both deepened down to the subcutaneous tissue, careful to identify, avoid and retract any neurovascular structures and cauterize any bleeding vessels. Capsule and tendinous structures were incised sharply, exposing the head of the proximal phalanx and base of the middle phalanx. A sagittal saw was used to resect the heads of the proximal phalanges, and then a curette was used to remove the articular cartilage on the base of the middle phalanx. The digits were aligned to check for correction, which was also done under fluoroscopy. Correction appeared within normal limits. A drill hole was made through the base of the middle phalanx for the placement of the Arthrex hammertoe implants, which were then threaded into the drill holes. The guidewire was then placed in the proximal phalanx in the area overdrilled. The guidewires were removed. The digits were distracted and corrected, and the arms of the fixation device were then inserted into the airplane pilot chief hole of the proximal phalanx with good compression noted, and maintained correction and position were confirmed under fluoroscopy. Then attention directed to the fourth digit, would had a flexible flexor contracture, so a small stab incision was made on the lateral side of the fourth digit at the mid shaft of the proximal phalanx. The blade was done parallel to the floor and then rotated plantarly and the digit dorsiflexed to resect the flexor tendon, which allowed for correction of the deformity. The same procedure was done for the fifth digit in the same manner. All wounds were then thoroughly irrigated with antibiotic saline. The deep closure was done with 3-0 Vicryl and skin closure done with nylon. Non- adherent dressings were applied over all the incisions and a bulky dry dressing was applied to the left foot. The tourniquet was released and capillary refill returned to all digits on the left foot. The patient tolerated the above procedure and anesthesia well and left the operating room to Recovery with vital signs stable. MMODL / IJN: [id number] /
== END 2020-03-11 12:57 | disposition home or self-care (01) ==
LOC: OR 07:46
PROVIDERS: ATTEND Podiatrist
DX: M20.32 Hallux varus (acquired), left foot (principal); M20.42 Other hammer toe(s) (acquired), left foot; I10 Essential (primary) hypertension; L84 Corns and callosities; H91.90 Unspecified hearing loss, unspecified ear; M10.9 Gout, unspecified; M81.0 Age-related osteoporosis without current pathological fracture; M19.90 Unspecified osteoarthritis, unspecified site; E78.2 Mixed hyperlipidemia; I25.10 Atherosclerotic heart disease of native coronary artery without angina pectoris; Z98.1 Arthrodesis status; Z79.899 Other long term (current) drug therapy; Z97.3 Presence of spectacles and contact lenses; Z87.891 Personal history of nicotine dependence; Z97.2 Presence of dental prosthetic device (complete) (partial)
CPT/HCPCS: 73660; 28755; 28285 ×3; C1713; J1100; J0690; J2405; J2001; J3010; J2704

== ENCOUNTER → 2020-04-14 | Outpatient (CLI) | payer MEDICARE, BC ==
--- NOTE | 2020-04-14 14:57 | MM ---
Reason for exam: follow-up at short interval from prior study. Last mammogram was performed 6 months ago. History: Benign excisional biopsy of the left breast. Physical Findings: Nurse did not find any significant physical abnormalities on exam. MG 3D Diag Mammo W/Cad KARLI Bilateral CC and MLO view(s) were taken. Prior study comparison: October 12, 2019, right breast MG diagnostic mammo RT w CAD. March 05, 2019, mammogram, performed at [place]. The breast tissue is heterogeneously dense. This may lower the sensitivity of mammography. Areas of nodularity have improved. These results were verbally communicated with the patient and result sheet given to the patient on 04/14/20. ASSESSMENT: Benign, BI-RAD 2 RECOMMENDATION: Routine screening mammogram of both breasts in 1 year.
== END | disposition home or self-care (01) ==
LOC: RADMAMWWP 13:31
PROVIDERS: ATTEND Surgery
DX: R92.8 Other abnormal and inconclusive findings on diagnostic imaging of breast (principal)
CPT/HCPCS: 77066; G0279; 77062

== ENCOUNTER → 2020-04-21 | Outpatient (CLI) | payer MEDICARE, BC ==
[2020-04-21 13:44] VITALS: BP 144/80; PULSE 70; RESP 18; TEMP 97.8
--- NOTE | 2020-04-21 14:37 | P.PN ---
Subjective Progress Note Date: 04/21/20 Principal diagnosis: fibrocystic breast disease follow up right breast mammogram and ultrasound Norman is an 79-year-old white female who presented for breast evaluation and consultation for Dr. Quiros, and Lily Dotson. She had a bilateral mammogram performed on . This revealed breast tissue with scattered fibroglandular densities. Ultrasound of the right breast was recommended, nothing further of the left breast was recommended at this time. Ultrasound was performed on 2519. This revealed a 0.5 x 0.5 cm well-circumscribed hypoechoic region just superior to the nipple in the retroareolar region. This was felt to be probable complex cyst and was BIRADS 3. Six-month follow-up with a right-sided mammogram and ultrasound was recommended. This was a routine mammogram. The patient today does not feel any lumps masses or nodules in her breast. The patient has no history of any trauma to the breast. No complaints of any recent infection in the breast. No surgeries in that breast, she did have 2 prior open left breast biopsies which were not cancer. No nipple discharge or skin changes. She presents today for results of her right breast mammogram and ultrasound done on 10-12-19. These were BIRAD 3, and repeat studies in 6 months recommended. She had a bilateral mammogram and [id number]. This was benign BIRADS 2. The patient does not feel any lumps masses or nodules of concern. She does not complain of any breast pain or discomfort. She is not complaining of any nipple discharge or skin changes of concern. Caffiene: Coffee per day Nicotine: Negative Theophylline: Occasional Family History: mother: colon cancer, liver mets Hormonal History: menarche: 11 , 1 , breast fed: yes, first born at 24 menopause: hysterectomy at 35, left one ovary, no cancer/fibroids BCP: < 1 year hormones: none Surgical history: 1. Hysterectomy and one ovary removed at the age of 35 2. 2 3. Bilateral knee replacement done twice on the right 4. Left foot surgery reconstruction 5. bilateral wrist surgery 6. hammer toe surgery Medical History: 1. arthritis 2. HTN 3. gout 4. heart murmur Social History: smoke: none, stopped 40 years ago, smoked 20 years alcohol: none drugs: none - Constitutional Constitutional: Denies chills, Denies fever - EENT Comment: right eye decreased vision Ears: bilateral: decreased hearing Ears, nose, mouth and throat: Denies headache, Denies sore throat - Breasts Breasts: bilateral: as per HPI - Cardiovascular Cardiovascular: Reports high blood pressure - Respiratory Respiratory: Denies cough, - Gastrointestinal Gastrointestinal: Denies abdominal pain, Denies diarrhea, Denies nausea, Denies vomiting - Genitourinary (Female) Genitourinary: Denies dysuria, Denies hematuria - Menstruation Menstruation: Reports postmenopausal - Musculoskeletal Comment: arthritis - Integumentary Integumentary: Denies pruritus, Denies rash - Neurological Neurological: Denies numbness, Denies weakness - Psychiatric Psychiatric: Denies anxiety, Denies depression - Endocrine Endocrine: Denies fatigue - Hematologic/Lymphatic Comment: none - Allergic/Immunologic Allergic/Immunologic: Reports as per HPI Objective - Vital Signs Vital signs: Vital Signs Temp 97.8 F 04/21/20 13:21 Pulse 70 04/21/20 13:21 Resp 18 04/21/20 13:21 BP 144/80 04/21/20 13:21 Pulse Ox 96 04/21/20 13:21 Intake & Output 04/20/20 04/21/20 04/21/20 18:59 06:59 18:59 Weight 96.615 kg - Exam BMI 32.4 - Constitutional General appearance: Present: cooperative - EENT Eyes: Present: EOMI ENT: Present: hearing grossly normal - Neck Neck: Present: normal ROM - Respiratory Respiratory: bilateral: CTA - Cardiovascular Rhythm: regular Heart sounds: normal: S1, S2 Abnormal Heart Sounds: Present: systolic murmur - Gastrointestinal General gastrointestinal: Present: soft - Integumentary Integumentary: Present: normal turgor - Musculoskeletal Musculoskeletal Comment(s): walking with a cane - Psychiatric Psychiatric: Present: A&O x's 3, appropriate affect, intact judgment & insight - Additional findings Additional findings: Breast exam: BRA 44D inspection: bilateral grade 3 ptosis Palpation: Right breast: Multi-positional exam fibrocystic changes no dominant masses or no dules of concern Right axilla: No adenopathy of concern Left breast: Multiple positional exam fibrocystic changes no dominant masses or nodules of concern Left axilla: No adenopathy of concern Assessment and Plan Assessment: Impression: 1. arthritis 2. HTN 3. gout 4. heart murmur 5. Fibrocystic breast changes 6. Bilateral mammogram benign BIRADS 2 Plan: 1. Repeat bilateral mammogram in 1 year with physician exam at that time 2. Patient to call if she notes any concerns sooner 3. Medical management of medical conditions Cc: Dr. Quiros Encounter 15 minutes, time spent in examination, reviewing medical records, and counselling
== END | disposition home or self-care (01) ==
LOC: WWCWWP 13:21
PROVIDERS: ATTEND Surgery
DX: N60.11 Diffuse cystic mastopathy of right breast (principal); I10 Essential (primary) hypertension; M10.9 Gout, unspecified; R01.1 Cardiac murmur, unspecified; Z87.891 Personal history of nicotine dependence

== ENCOUNTER → 2021-04-17 | Outpatient (CLI) | payer MEDICARE, BC ==
--- NOTE | 2021-04-19 09:02 | MM ---
Reason for exam: screening (asymptomatic). Last mammogram was performed 1 year ago. History: Patient is postmenopausal. Benign excisional biopsy of the left breast. Physical Findings: A clinical breast exam by your physician is recommended on an annual basis and results should be correlated with mammographic findings. MG 3D Screening Mammo W/Cad Bilateral CC and MLO view(s) were taken. XCCL view(s) were taken of the left breast. Prior study comparison: April 14, 2020, bilateral MG 3d diag mammo w/cad [facility]. October 12, 2019, right breast MG diagnostic mammo RT w CAD. The breast tissue is heterogeneously dense. This may lower the sensitivity of mammography. Previous mammotome biopsy in the left breast. There is chronic nodularity in the left breast, stable. No significant changes when compared with prior studies. ASSESSMENT: Benign, BI-RAD 2 RECOMMENDATION: Routine screening mammogram of both breasts in 1 year.
== END | disposition home or self-care (01) ==
LOC: RADMAMWWP 10:08
PROVIDERS: ATTEND Surgery
DX: Z12.31 Encounter for screening mammogram for malignant neoplasm of breast (principal)
CPT/HCPCS: 77063; 77067

== ENCOUNTER → 2021-04-21 | Outpatient (CLI) | payer MEDICARE, BC ==
[2021-04-21 10:45] VITALS: BP 184/90; PULSE 75; RESP 16; TEMP 98.5
--- NOTE | 2021-04-21 11:15 | P.PN ---
Subjective Progress Note Date: 04/21/21 Principal diagnosis: Fibrocystic breast changes Norman is an 80 year old white female seen for surveillance regarding fibrocystic breast changes. He is not complaining of any new lumps masses or nodules of concern in either breast. She had a bilateral mammogram on which was benign BIRADS 2 Caffiene: coffee every other day Nicotine: Negative chocolate: Occasional Family History: mother: colon cancer, liver mets Hormonal History: menarche: 11 , 1 , breast fed: yes, first born at 24 menopause: hysterectomy at 35, left one ovary, no cancer/fibroids BCP: < 1 year hormones: none Surgical history: 1. Hysterectomy and one ovary removed at the age of 35 2. 2 3. Bilateral knee replacement done twice on the right 4. Left foot surgery reconstruction 5. bilateral wrist surgery 6. hammer toes left foot Medical History: 1. arthritis 2. HTN 3. gout 4. heart murmur 5. thyroid being checked Social History: smoke: none, stopped 40 years ago, smoked 20 years alcohol: none drugs: none - Constitutional Constitutional: Denies chills, Denies fever - EENT Comment: right eye decreased vision Ears: bilateral: decreased hearing Ears, nose, mouth and throat: Denies headache, Denies sore throat - Breasts Breasts: bilateral: as per HPI - Cardiovascular Cardiovascular: Reports high blood pressure - Respiratory Respiratory: Denies cough - Gastrointestinal Gastrointestinal: Denies abdominal pain, Denies diarrhea, Denies nausea, Denies vomiting - Genitourinary (Female) Genitourinary: Denies dysuria, Denies hematuria - Menstruation Menstruation: Reports postmenopausal - Musculoskeletal Comment: arthritis - Integumentary Integumentary: Denies pruritus, Denies rash - Neurological Neurological: Denies numbness, Denies weakness - Psychiatric Psychiatric: Denies anxiety, Denies depression - Endocrine Endocrine: Denies fatigue - Hematologic/Lymphatic Comment: none - Allergic/Immunologic Allergic/Immunologic: Reports as per HPI Past Medical History Past Medical History: Hearing Disorder / Deafness, Hypertension, Pneumonia Additional Past Medical History / Comment(s): HEART MURMUR History of Any Multi-Drug Resistant Organisms: None Reported Past Surgical History: Hysterectomy Additional Past Surgical History / Comment(s): TOTAL RIGHT AND LEFT KNEE , LEFT WRIST Past Anesthesia/Blood Transfusion Reactions: No Reported Reaction Smoking Status: Former smoker - Past Family History Mother Family Medical History: No Reported History Objective - Vital Signs Vital signs: Vital Signs Temp 98.5 F 04/21/21 10:42 Pulse 75 04/21/21 10:42 Resp 16 04/21/21 10:42 BP 184/90 04/21/21 10:42 Pulse Ox 97 04/21/21 10:42 Intake & Output 04/20/21 04/21/21 04/21/21 18:59 06:59 18:59 Weight 94.347 kg - Exam BMI 32.6 - Constitutional General appearance: Present: cooperative - EENT Eyes: Present: EOMI ENT: Present: hearing grossly normal - Neck Neck: Present: normal ROM - Respiratory Respiratory: bilateral: CTA - Cardiovascular Heart sounds: normal: S1, S2 - Gastrointestinal General gastrointestinal: Present: soft - Integumentary Integumentary: Present: normal turgor - Psychiatric Psychiatric: Present: A&O x's 3, appropriate affect, intact judgment & insight - Additional findings Additional findings: Breast Exam: BRA: 44C inspection: Bladder grade 3 ptosis Palpation: Right breast: Multiple positional exam fibrocystic changes no dominant masses or nodules of concern, fungal infection under the breast Right axilla: No adenopathy of concern Left breast: Multiple positional exam fibrocystic changes no dominant masses or nodules of concern Left axilla: No adenopathy of concern Fungal infection under her left breast Assessment and Plan Assessment: Impression: Fibrocystic breast changes Recent bilateral mammogram [id number] benign BIRADS 2 Fungal infection under both breast Plan: Nystatin cream under breast twice a day Bilateral mammogram in 1 year Follow up sooner any questions or concerns CC: Dr. Boyle
== END | disposition home or self-care (01) ==
LOC: WWCWWP 10:32
PROVIDERS: ATTEND Surgery
DX: Z53.9 Procedure and treatment not carried out, unspecified reason (principal)

== ENCOUNTER → 2022-05-03 | Outpatient (CLI) | payer MEDICARE ==
[2022-05-03 10:03] VITALS: BP 114/75; PULSE 61; RESP 17; TEMP 98.1
--- NOTE | 2022-05-03 10:09 | P.PN ---
Subjective Progress Note Date: 05/03/22 Principal diagnosis: fibrocystic breast changes Norman is an 81 year old white female seen for surveillance regarding fibrocystic breast changes. She is not complaining of any new lumps masses or nodules of concern in either breast. She had a bilateral mammogram on 04-23-22 which was benign BIRADS 1 Caffiene: coffee every other day Nicotine: Negative chocolate: Occasional Family History: mother: colon cancer, liver mets Hormonal History: menarche: 11 , 1 , breast fed: yes, first born at 24 menopause: hysterectomy at 35, left one ovary, no cancer/fibroids BCP: < 1 year hormones: none Surgical history: 1. Hysterectomy and one ovary removed at the age of 35 2. 2 3. Bilateral knee replacement done twice on the right 4. Left foot surgery reconstruction 5. bilateral wrist surgery 6. hammer toes left foot Medical History: 1. arthritis 2. HTN 3. gout 4. heart murmur 5. thyroid being checked 6. sciatic nerve pain Social History: smoke: none, stopped 40 years ago, smoked 20 years alcohol: none drugs: none - Constitutional Constitutional: Denies chills, Denies fever - EENT Comment: right eye decreased vision Ears: bilateral: decreased hearing Ears, nose, mouth and throat: Denies headache, Denies sore throat - Breasts Breasts: bilateral: as per HPI - Cardiovascular Cardiovascular: Reports high blood pressure - Respiratory Respiratory: Denies cough - Gastrointestinal Gastrointestinal: Denies abdominal pain, Denies diarrhea, Denies nausea, Denies vomiting - Genitourinary (Female) Genitourinary: Denies dysuria, Denies hematuria - Menstruation Menstruation: Reports postmenopausal - Musculoskeletal Comment: arthritis - Integumentary Integumentary: Denies pruritus, Denies rash - Neurological Neurological: Denies numbness, Denies weakness - Psychiatric Psychiatric: Denies anxiety, Denies depression - Endocrine Endocrine: Denies fatigue - Hematologic/Lymphatic Comment: none - Allergic/Immunologic Allergic/Immunologic: Reports as per HPI Past Medical History Past Medical History: Hearing Disorder / Deafness, Hypertension, Pneumonia Additional Past Medical History / Comment(s): HEART MURMUR History of Any Multi-Drug Resistant Organisms: None Reported Past Surgical History: Hysterectomy Additional Past Surgical History / Comment(s): TOTAL RIGHT AND LEFT KNEE , LEFT WRIST Past Anesthesia/Blood Transfusion Reactions: No Reported Reaction Smoking Status: Former smoker - Past Family History Mother Family Medical History: No Reported History Objective - Vital Signs Vital signs: Intake & Output 05/02/22 05/03/22 05/03/22 18:59 06:59 18:59 Weight 93.894 kg - Constitutional General appearance: Present: cooperative - EENT Eyes: Present: EOMI ENT: Present: hearing grossly normal - Neck Neck: Present: normal ROM - Respiratory Respiratory: bilateral: CTA - Cardiovascular Rhythm: regular Heart sounds: normal: S1, S2 - Gastrointestinal General gastrointestinal: Present: soft - Integumentary Integumentary: Present: normal turgor - Musculoskeletal Musculoskeletal Comment(s): uses a cane - Psychiatric Psychiatric: Present: A&O x's 3, appropriate affect, intact judgment & insight - Additional findings Additional findings: Breast Exam: BRA: 44C inspection: Bilateral grade 3 ptosis Palpation: Right breast: Multiple positional exam fibrocystic changes no dominant masses or nodules of concern, fungal infection under the breast Right axilla: No adenopathy of concern Left breast: Multiple positional exam fibrocystic changes no dominant masses or nodules of concern Left axilla: No adenopathy of concern Assessment and Plan Assessment: Impression: Fibrocystic breast changes Recent bilateral mammogram 04-23-22 BIRAD 1 Plan: Bilateral mammogram in 1 year Follow up sooner any questions or concerns CC: Dr. Boyle
== END ==
LOC: WWCWWP 09:19
PROVIDERS: ATTEND Surgery
DX: Z12.31 Encounter for screening mammogram for malignant neoplasm of breast (principal); N60.29 Fibroadenosis of unspecified breast; I10 Essential (primary) hypertension; Z87.891 Personal history of nicotine dependence; M19.90 Unspecified osteoarthritis, unspecified site